=== PATIENT | female | born 1985 | race Caucasian/White ===

== ENCOUNTER 2019-01-07 05:00 | Inpatient (IN) | payer MEDICAID ==
[~2019-01-07] VITALS: Ht 152.4 cm; Wt 66.5 kg
[~2019-01-07 05:00] MED LIST: PNV1TABL12 PO
[2019-01-07 05:58] VITALS: Ht 152.4 cm; Wt 66.5 kg
[2019-01-07] MEDS ORDERED: OXYTOCIN 30 UNITS/LR 500 ML IV PRN ×3 (06:00→12:00)
[2019-01-07] MEDS ORDERED: MISOPROSTOL 200 MCG TAB PR PRN ×3 (06:00→12:00)
[2019-01-07] MEDS ORDERED: CARBOPROST 250 MCG INJ IM PRN ×3 (06:00→12:00)
[2019-01-07] MEDS ORDERED: OXYTOCIN 30 UNITS/LR 500 ML IV SCH ×2 (06:00→11:46)
[2019-01-07] MEDS ORDERED: CEFAZOLIN 2 GM/50 ML (PMX) 50 ML IVPB SCH ×2 (06:00→06:30)
[2019-01-07] MEDS ORDERED: METHYLERGONOVINE 0.2 MG INJ IM PRN ×3 (06:00→12:00)
[2019-01-07] MEDS ORDERED: LACTATED RINGER'S 1,000 ML IV SCH (06:00)
[2019-01-07] MEDS ORDERED: TERBUTALINE 1 ML ONE (06:37)
[2019-01-07] MEDS ORDERED: TERBUTALINE 1 MG/ML INJ SC ONE (07:00)
[2019-01-07] MEDS ORDERED: CITRIC ACID/NA CITRATE 30 ML CUP PO ONE (07:20)
[2019-01-07] MEDS ORDERED: KETOROLAC 30 MG INJ ONE (07:40)
[2019-01-07] MEDS ORDERED: METOCLOPRAMIDE 10 MG INJ ONE (07:40)
[2019-01-07] MEDS ORDERED: morphine SULFATE/PF (10 MG/10 ML) INJ ONE (07:40)
[2019-01-07] MEDS ORDERED: EPHEDrine 25 MG/5 ML SYG ONE (08:12)
[2019-01-07] MEDS ORDERED: OXYTOCIN 30 UNITS/LR 500 ML IV ONE (08:30)
[2019-01-07] MEDS ORDERED: morphine 2 MG INJ IV PRN ×6 (09:00)
[2019-01-07] MEDS ORDERED: ONDANSETRON 4 MG INJ IV PRN ×2 (09:00)
[2019-01-07] MEDS ORDERED: DIPHENHYDRAMINE 50 MG INJ IV PRN ×2 (09:00)
[2019-01-07] MEDS ORDERED: NALOXONE (0.4 MG/ML) INJ IV PRN (09:00)
[2019-01-07] MEDS ORDERED: KETOROLAC 30 MG INJ IV PRN (09:00)
[2019-01-07] MEDS: OXYTOCIN 30 UNITS/LR 500 ML IV SCH ×2 (09:03→21:10)
[2019-01-07] MEDS ORDERED: OXYCODONE/ACETAMINOPHEN (5/325) TAB PO PRN (12:00)
[2019-01-07] MEDS ORDERED: LANOLIN HPA 1 PKT TOP PRN (12:00)
[2019-01-07] MEDS ORDERED: NACL 0.9% 3 ML SYG IV SCH (12:00)
[2019-01-07] MEDS ORDERED: IBUPROFEN 600 MG TAB PO SCH (12:00)
[2019-01-07 12:20] VITALS: BP 116/70; PULSE 66; RESP 18
[2019-01-07 14:00] VITALS: BP 129/66; PULSE 64; RESP 16
[2019-01-07 20:00] VITALS: BP 133/64; PULSE 69; RESP 20
[2019-01-07] MEDS: KETOROLAC 30 MG INJ IV PRN (23:58)
[2019-01-08 04:24] VITALS: BP 132/66; PULSE 70; RESP 20
[2019-01-08] MEDS: KETOROLAC 30 MG INJ IV PRN (07:49)
[2019-01-08 08:35] VITALS: BP 110/57; PULSE 67; RESP 16
[2019-01-08] MEDS: IBUPROFEN 600 MG TAB PO SCH ×3 (12:21→23:27)
[2019-01-08 15:36] VITALS: BP 110/69; PULSE 72; RESP 18
[2019-01-08 20:00] VITALS: BP 128/64; PULSE 74; RESP 20
[2019-01-09 03:03] VITALS: BP 126/68; PULSE 72; RESP 20
[2019-01-09] MEDS: IBUPROFEN 600 MG TAB PO SCH ×2 (05:22→11:22)
[2019-01-09 07:40] VITALS: BP 116/74; PULSE 54; RESP 16
[2019-01-10] MEDS ORDERED: DIPHTH/TET/ACEL PERTUSS (ADULT) 0.5 ML VIAL IM* ONE (09:00)
== END 2019-01-09 18:43 | disposition home or self-care (01) | DRG 788 ==
LOC: L-D 05:00 → PP1 14:00
PROVIDERS: ADMIT Obstetrics & Gynecology; ATTEND Obstetrics & Gynecology
PROC: 10D00Z1 Extraction of Products of Conception, Low, Open Approach (ICD-10-PCS; principal; 2019-01-07 07:30)
DX: O65.5 Obstructed labor due to abnormality of maternal pelvic organs (principal); O34.211 Maternal care for low transverse scar from previous cesarean delivery; Z3A.39 39 weeks gestation of pregnancy; Z37.0 Single live birth
CPT/HCPCS: 85025; 85610; 85730; 86592; 86850; 86900; 86901; 87340; 99464; J0690; J1885; J2274; J2405; J2590; J2765; J3105; J7120